=== PATIENT | female | born 1970 ===

== ENCOUNTER 2018-06-12 20:31 | Emergency (ER) | payer OTHER ==
[2018-06-12] MEDS ORDERED: Naproxen 500 MG TAB PO STA (21:45)
--- NOTE | 2018-06-12 21:49 | ED PDOC ---
HPI: CCC, URI, Sore Throat Time Seen by Provider: 06/12/18 21:39 Chief Complaint (Nursing): ENT Problem Chief Complaint (Provider): ENT Problem History Per: [employer] (patient's boyfriend is preferred method of translation) History/Exam Limitations: no limitations Onset/Duration Of Symptoms: Days (x1) Additional Complaint(s): Patient is a 48 year old female who presents to the emergency department complaining of left ear pain, cough, and throat pain x2 days. She states she has pain when swallowing. She has been taking Robitussin for symptoms, with her last dose taken tonight around 5pm. She denies having any fever, sick contacts, recent travel, vomiting, diarrhea, rash, abdominal pain, headache, neck pain/stiffness, or chest pain. PMD: no provider LMP: Now Past Medical History Reviewed: Historical Data, Nursing Documentation, Vital Signs Vital Signs: Last Vital Signs Temp 98.2 F 06/12/18 21:31 Pulse 76 06/12/18 21:31 Resp 16 06/12/18 21:31 BP 150/85 06/12/18 21:31 Pulse Ox 100 06/12/18 21:31 - Medical History PMH: No Chronic Diseases - Surgical History Surgical History: No Surg Hx - Family History Family History: States: Unknown Family Hx - Home Medications Home Medications: Ambulatory Orders Medication Instructions Recorded Amoxicillin 875 mg PO BID #14 tab 06/12/18 Naproxen [Naprosyn] 500 mg PO BID PRN #20 tablet 06/12/18 - Allergies Allergies/Adverse Reactions: Allergies Allergy/AdvReac Type Severity Reaction Status Date / Time No Known Allergies Allergy Verified 06/12/18 21:31 Review of Systems ROS Statement: Except As Marked, All Systems Reviewed And Found Negative Constitutional: Negative for: Fever ENT: Positive for: Ear Pain, Throat Pain Cardiovascular: Negative for: Chest Pain Gastrointestinal: Negative for: Vomiting, Abdominal Pain, Diarrhea Skin: Negative for: Rash Physical Exam - Reviewed Nursing Documentation Reviewed: Yes Vital Signs Reviewed: Yes - Physical Exam Comments: GENERAL APPEARANCE: Patient is awake, alert, oriented x 3, in no acute distress. Resting comfortably. SKIN: Warm, dry; (-) cyanosis. ENMT: Canals : (-) cerumen impaction. Left TM: (+) bulging and (+) erythema. Right TM: (-) bulging (-) erythema. Both TM: (-) perforation,(-) vesicles. Frontal / maxillary sinuses : (-) tenderness. (-) TMJ tenderness. Pharynx: (+) uvula midline (-) erythema, (-) exudate. Airway patent: (-) stridor. Mucus membranes moist. NECK: Supple, FROM (-) stiffness, (-) tenderness, (-) lymphadenopathy. LUNGS: clear to auscultation bilaterally (-) wheezing, (-) rhonchi (-) rales. Respirations even and nonlabored. CARDIAC: RRR - ECG O2 Sat by Pulse Oximetry: 100 (RA) Pulse Ox Interpretation: Normal Medical Decision Making Medical Decision Making: Time: 2144 Impression: otitis media of the left ear, throat pain Plan: --Amoxicillin 500 mg PO --Naproxen 500 mg PO --Re-evaluation On re-evaluation, patient reports improvement of symptoms. On exam, patient remains AAOx3, in no acute distress. Lungs clear to auscultation, cardiac RRR, repeat neuro exam shows no focal findings. Vitals stable. Lab/Diagnostic results d/w the patient in great detail. Diagnosis of otitis media and otalgia of left ear, sore throat d/w the patient. Based on history, exam and diagnostic results, plan will be for outpatient follow up with clinic/ENT. Patient instructed to follow-up with pmd / referral provided / the clinic in 1- 2 days without fail. Advised to take medication as prescribed. Return to the [facility] room at any time for any new or worsening symptoms. Patient states she fully agrees with and understands discharge instructions. States that she agrees with the plan and disposition. Verbalized and repeated discharge instructions and plan. I have given the patient opportunity to ask any additional questions. Scribe Attestation: Documented by Alonso Fraga acting as a scribe for Cleo Kang. Provider Scribe Attestation: All medical record entries made by the Scribe were at my direction and personally dictated by me. I have reviewed the chart and agree that the record accurately reflects my personal performance of the history, physical exam, medical decision making, and the department course for this patient. I have also personally directed, reviewed, and agree with the discharge instructions and disposition. Disposition - Clinical Impression Clinical Impression: Otitis media of left ear, Otalgia of left ear, Sore throat - Patient ED Disposition Is Patient to be Admitted: No Counseled Patient/Family Regarding: Studies Performed, Diagnosis, Need For Followup, Rx Given - Disposition Referrals: [facility] [Outside] Saroj Martin MD [Staff Provider] - Disposition: Routine/Home Disposition Time: 23:00 Condition: STABLE Additional Instructions: The emergency medical care you received today was directed at your acute symptoms. If you were prescribed any medication, please fill it and take as directed. It may take several days for your symptoms to resolve. Return to the Emergency Department if your symptoms worsen, do not improve, or if you have any other problems. Please contact your doctor in 2 days for re-evaluation and follow up / or call one of the physicians/clinics you have been referred to that are listed on the Patient Visit Information form that is included in your discharge packet. Bring any paperwork you were given at discharge with you along with any medications you are taking to your follow up visit. Our treatment cannot replace ongoing m edical care by a primary care provider (PCP) outside of the emergency department. Prescriptions: Amoxicillin 875 mg PO BID #14 tab Naproxen [Naprosyn] 500 mg PO BID PRN #20 tablet PRN Reason: Pain, Moderate (4-7) Instructions: Ear Infections (Otitis Media), Sore Throat in Adults Forms: [employer] (Pakistani) Print Language: NEPALI - POA Present On Arrival: None
[2018-06-12] MEDS ORDERED: Naproxen 500 MG TAB PO ONE (22:22)
[2018-06-12 23:15] VITALS: BP 138/76; PULSE 72; RESP 18; TEMP 98.4
[2018-06-13 03:05] VITALS: O2SAT 100
== END 2018-06-13 | disposition home or self-care (01) ==
LOC: H.ER 20:31
DX: H66.92 Otitis media, unspecified, left ear (principal)